=== PATIENT | female | born 2000 | race Two or more races ===

== ENCOUNTER 2023-02-03 04:48 | Emergency (ER) | payer OTHER ==
[~2023-02-03] VITALS: Ht 154.9 cm; Wt 90.4 kg
[2023-02-03 05:05] VITALS: BP 116/70; PULSE 98; RESP 18; O2SAT 96
== END 2023-02-03 08:15 | disposition left against medical advice (07) ==
LOC: ER 04:48
DX: K08.89 Other specified disorders of teeth and supporting structures (principal); Z53.21 Procedure and treatment not carried out due to patient leaving prior to being seen by health care provider